=== PATIENT | male | born 1955 | race Hispanic/Latino ===

== ENCOUNTER → 2024-01-20 | Outpatient (CLI) | payer OTHER ==
[~2024-01-20] MED LIST: ALBU8.5H8 IH; ASPI-1005 PO; ATOR40TA69 PO; BUDE10.2 IH; CYCL-309 PO; ESOM20CA31 PO; FLUT16H NASAL; FURO20TA4 PO; GABA-531 PO; ISOS30TA92 PO; LISI20TA24 PO; METO50TA18 PO; NITR0.4T SL; POTA25PA PO; TRAM50TA4 PO; VERA240T95 PO
== END | disposition home or self-care (01) ==
LOC: RAH 10:05
PROVIDERS: ATTEND Internal Medicine Cardiovascular Disease
DX: Z13.6 Encounter for screening for cardiovascular disorders (principal); I71.21 Aneurysm of the ascending aorta, without rupture
CPT/HCPCS: 75571

== ENCOUNTER → 2024-02-14 | Outpatient (CLI) | payer OTHER ==
[2024-02-14] MEDS: REGADENOSON 0.4 MG/5 ML PF SYG IVP ONE (11:25)
== END | disposition home or self-care (01) ==
LOC: SHCH 08:05
PROVIDERS: ATTEND Internal Medicine Cardiovascular Disease
DX: R07.89 Other chest pain (principal); R06.00 Dyspnea, unspecified
CPT/HCPCS: 78452; 96374; 93017; J2785; A9500 ×2

== ENCOUNTER → 2024-11-15 | Outpatient (CLI) | payer OTHER ==
[~2024-11-15] MED LIST changes: +IOHEXOL 350 MG/ML 100ML INFUS..BTL IV ONE
--- NOTE | 2024-11-15 10:35 | HMCIMG ---
CT ANGIO CHEST HISTORY: Aortic ectasia COMPARISON: 05/12/2015 TECHNIQUE: CT angiography of the chest was performed. The study was performed using angiographic technique with maximum intensity projection reconstruction images. Patient was given 100 cc of Omnipaque through intravenous route. FINDINGS: There is ascending thoracic aortic aneurysm measuring 4.3 x 4.9 cm. This is grossly unchanged allowing for technical differences. Fatty changes of the liver are noted. Tiny gallstone is seen in the gallbladder. There is right adrenal hypodense nodule measuring 12 mm suggested of adrenal adenoma. There is left adrenal nodule with decreased attenuation measuring 16 mm also consistent with adrenal adenoma. No CT evidence of filling defect is seen to suggest pulmonary embolus. No CT evidence of aortic dissection is seen. No evidence of parenchymal disease is seen. No CT evidence of pleural effusion or pericardial effusion is seen. The heart is enlarged. Degenerative changes of the spine are noted. IMPRESSION: 1. No CT evidence of acute pulmonary embolus or aortic dissection is seen. There is ascending thoracic aortic aneurysm measuring 4.3 x 4.9 cm grossly unchanged. Bilateral adrenal nodules may be related to adrenal adenoma also unchanged. CT was performed with one or more following dose reduction techniques: automated exposure control, adjustment of the mA and kv according to patient's size, or use of a iterative reconstruction technique.
== END | disposition home or self-care (01) ==
LOC: RAH 08:31
PROVIDERS: ATTEND Internal Medicine Cardiovascular Disease
DX: I51.7 Cardiomegaly (principal); I71.21 Aneurysm of the ascending aorta, without rupture; K76.0 Fatty (change of) liver, not elsewhere classified; E27.8 Other specified disorders of adrenal gland; K80.20 Calculus of gallbladder without cholecystitis without obstruction; M47.814 Spondylosis without myelopathy or radiculopathy, thoracic region
CPT/HCPCS: 71275; Q9967

== ENCOUNTER → 2024-11-30 | Outpatient (CLI) | payer OTHER ==
[~2024-11-30] MED LIST changes: -IOHEXOL 350 MG/ML 100ML INFUS..BTL IV ONE
[2024-11-30 12:16] LABS: ALBUMIN 3.9 g/dL (3.5-5.0); BILIRUBIN,TOTAL 0.5 mg/dL (0.2-1.0); CREATININE 1.1 mg/dL (0.5-1.3); MAGNESIUM 2.1 mg/dL (1.80-2.40); POTASSIUM 4.3 mmol/L (3.5-5.1); T4 (THYROXINE) 5.9 ug/dL (4.7-13.3); THYROID STIMULATING HORMONE 2.19 uIU/mL (0.36-3.74); TOTAL PROTEIN, SERUM 7.9 g/dL (6.0-8.3)
== END | disposition home or self-care (01) ==
LOC: LAB 09:00
PROVIDERS: ATTEND Internal Medicine Cardiovascular Disease
DX: R00.2 Palpitations (principal)
CPT/HCPCS: 36415; 80053; 83735; 83880; 84436; 84443; 84479

== ENCOUNTER → 2025-03-20 | Outpatient (CLI) | payer OTHER ==
[2025-03-16 12:02] VITALS: BP 117/62; PULSE 81; RESP 14; TEMP 98
[2025-03-16 12:29] LABS: IMMATURE GRANULOCYTE ABSOLUTE 0.03 K/uL (0-1); NUCLEATED RED BLOOD CELLS 0.0 % (0.0-0.19); PLATELET COUNT (AUTO) 261 K/uL (130-400); RED BLOOD CELL COUNT(AUTO) 4.10 MIL/uL (4.50-6.20); RED CELL DISTRIBUTION WIDTH 12.7 % (11.0-15.5); WHITE BLOOD COUNT (AUTO) 10.0 K/uL (4.8-10.8)
[2025-03-16 12:41] LABS: CREATININE 2.2 mg/dL (0.5-1.3); GLOMERULAR FILTR. RATE CALC 32.0 mL/min (>90); GLUCOSE,RANDOM 108.0 mg/dL (70-105); SODIUM SERUM 137.0 mmol/L (136-145); UREA NITROGEN, BLOOD 33.0 mg/dL (7-18)
[2025-03-16 12:43] LABS: INR 0.95 (0.85-1.15)
--- NOTE | 2025-03-16 16:00 | NUR ---
RE: MEDICATION INSTRUCTIONS INFORMED JEFFERY MALHOTRA/DR DIGGS THAT PATIENT DID NOT TAPER METOPROLOL INSTRUCTED AND THAT HIS LAST DOSE WAS 03/15/25 AT 1800. NO NEW ORDERS RECEIVED.
--- NOTE | 2025-03-17 09:34 | EKG ---
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
--- NOTE | 2025-03-19 16:33 | NUR ---
RE: LABS REPORTED BMP RESULTS TO DR DIGGS. PER DR DIGGS, CANCEL PROCEDURE AND HAVE PATIENT FOLLOW UP WITH PCP DUE TO KIDNEY FUNCTION. CALLED PATIENT AND EXPLAINED TO HIM THAT PROCEDURE WAS CANCELED BY DR DIGGS DUE TO KIDNEY FUNCTION. INSTRUCTED PATIENT TO FOLLOW UP WITH PCP REGARDING KIDNEY FUNCTION. PATIENT STATES HE DOES NOT HAVE A PCP.
[~2025-03-20] VITALS: Ht 185.4 cm; Wt 131.5 kg
[~2025-03-20] MED LIST changes: -ALBU8.5H8 IH; -ASPI-1005 PO; -CYCL-309 PO; +CYCL1DRO14 OP; +DICL2.5D7 OP; +DRON400T7 PO; -ESOM20CA31 PO; -FLUT16H NASAL; -FURO20TA4 PO; +FURO40TA5 PO; -GABA-531 PO; -LISI20TA24 PO; +LOSA100T59 PO; +METF-444 PO; -NITR0.4T SL; +POTA-193 PO; -POTA25PA PO; -TRAM50TA4 PO; -VERA240T95 PO
== END | disposition home or self-care (01) ==
LOC: EDSTATUS 09:30 → LAB 11:00
PROVIDERS: ATTEND Internal Medicine Cardiovascular Disease
DX: I49.3 Ventricular premature depolarization (principal); I45.10 Unspecified right bundle-branch block; Z88.8 Allergy status to other drugs, medicaments and biological substances; Z79.01 Long term (current) use of anticoagulants; Z53.8 Procedure and treatment not carried out for other reasons
CPT/HCPCS: 36415; 80048; 85025; 85610; 85730; 93005

== ENCOUNTER 2025-06-21 08:41 | Inpatient (IN) | payer OTHER ==
[2025-06-18 08:06] LABS: IMMATURE GRANULOCYTE ABSOLUTE 0.01 K/uL (0-1); NUCLEATED RED BLOOD CELLS 0.0 % (0.0-0.19); PLATELET COUNT (AUTO) 259 K/uL (130-400); RED BLOOD CELL COUNT(AUTO) 4.52 MIL/uL (4.50-6.20); RED CELL DISTRIBUTION WIDTH 12.1 % (11.0-15.5); WHITE BLOOD COUNT (AUTO) 6.7 K/uL (4.8-10.8)
[2025-06-18 08:14] LABS: CREATININE 1.0 mg/dL (0.5-1.3); GLOMERULAR FILTR. RATE CALC 81.0 mL/min (>90); GLUCOSE,RANDOM 121.0 mg/dL (70-105); SODIUM SERUM 137.0 mmol/L (136-145); UREA NITROGEN, BLOOD 12.0 mg/dL (7-18)
[2025-06-18 08:17] LABS: INR <= 0.93 (0.85-1.15)
--- NOTE | 2025-06-18 09:46 | EKG ---
[facility] Test Date: 2025-06-18 Test Time: 07:47:37 Pat Name: LIZA MCBRIDE [facility] Room: Gender: M Rate Examiner: [id number] : 1955 Requested By: PIERRE DIGGS Order Number: [id number] Reading MD: Avni Hannon Measurements Intervals [place] Rate: 75 P: 24 [place]: 190 QRS: -32 QRSD: 148 T: 27 QT: 445 QTc: 499 Interpretive Statements Sinus rhythm Right bundle branch block Compared to ECG 03/16/2025 11:44:54 Ventricular premature complex(es) no longer present Electronically Signed On 06-18-2025 18:16:36 HELPDESK TECHNICIAN by Avni Hannon Please click the below link to view image of tracing.
[2025-06-18 10:23] VITALS: BP 152/84; PULSE 85; RESP 17; TEMP 97.2
[2025-06-21] VITALS (14 sets, daily range): BP systolic 115–171; BP diastolic 72–104; PULSE 69–92; RESP 6–18; TEMP 97.2–98.1; O2SAT 94–96
[~2025-06-21] VITALS: Ht 185.4 cm; Wt 132.9 kg
[~2025-06-21 08:41] MED LIST changes: -ATOR40TA69 PO; -CYCL1DRO14 OP; +CYCL1DRO14 OS; -DICL2.5D7 OP; -FURO40TA5 PO; -METF-444 PO; +METF-446 PO; +METO25TA6 PO; +MULT-1285 PO; -POTA-193 PO; +POTA-202 PO
[2025-06-21] MEDS: 0.9%NACL 1000ML 1,000 ML IV SCH (09:24)
--- NOTE | 2025-06-21 11:44 | NUR ---
Patient remains stable with VS wnl. Awaiting Ablation at this time. Reported off in full to Jared HAMILTON RN.
[2025-06-21] MEDS ORDERED: SODIUM BICARB 50MEQ 50ML VIAL 50 ML ONE (12:21)
[2025-06-21] MEDS ORDERED: LIDOCAINE HCL 400MG/20ML VIAL ONE (12:21)
[2025-06-21] MEDS ORDERED: HEParin-NS 1,000 UNIT/500 ML 1,000 ML IV ONE (12:22)
[2025-06-21] MEDS ORDERED: MIDAZOLAM HCL 1 MG/ML 2ML VIAL ONE ×2 (12:34→14:35)
[2025-06-21] MEDS ORDERED: ISOPROTERENOL HCL 0.2 MG/ML AMP/VIAL/BAG ONE (12:42)
--- NOTE | 2025-06-21 17:05 | NUR ---
report to fela rn for room 232
--- NOTE | 2025-06-21 18:54 | CONS ---
[facility] CARDIAC ELECTROPHYSIOLOGY HISTORY AND PHYSICAL Date Patient Seen: Jun 21, 2025 Time of Visit: 18:46 Reason for Consultation: PVCs and chest pain History of Present Illness: The patient is a 69-year-old male with a past history of hypertension, COPD, diabetes, cervical spine disease, and a ascending aortic aneurysm, who is referred for frequent PVCs. He has a long history of recurrent syncope, nonsustained VT, and multiple PVCs. He had an MRI at that time which was without any significant abnormality. He has had normal LV systolic function back at that time. I had initially seen him in November 2014 when he was experiencing recurrent syncope, nonsustained VT, and PVCs. He had an MRI previously which was found to be normal and he had preserved LV systolic function. In 2014, he underwent cardiac catheterization which showed normal coronary arteries and a dilated aortic root. This is in contrast to a cardiac catheterization back in 2005 which showed an 80% stenosis of the ramus intermediate which was a small vessel and otherwise normal coronaries, raising the suspicion of possible silent infarct. His ejection fraction was 55% at that time. More recently he had a Lexiscan Cardiolite stress test on 02/14/2024 demonstrating inferoapical hypokinesis and fixed inferoseptal defects. There were no reversible defects. The ejection fraction was calculated at 43%. On 12/05/2014 he underwent electrophysiologic study by myself at [facility]. This showed PVCs originating from the septal aspect of the RVOT with earliest activation within 10 mm of the hiss bundle. There was no inducible VT. He also was found to have dual AV josefina physiology with up to 2 echo beats but no inducible AVNRT with isoproterenol up to 8 mcg/min. Ablation of the PVC focus was not done due to this close proximity to the His bundle and high risk of AV block. He did well on medical therapy but then his symptoms recurred. He was in [place], [place] in 2017 and on 01/29/2017 he underwent repeat electrophysiologic study. He was told at the time that the site was indeed very close to the conduction system but he gave the patient the option of taking the risk of complete heart block in order to achieve a cure. The patient decided to move forward and he did have a successful ablation. After approximately 6 months, he had recurrent PVCs and an episode of syncope and was treated with verapamil. This was successful until approximately a year ago when he developed recurrent palpitations metoprolol tartrate 50 mg twice daily was added to his regimen. A mobile property assessment monitor in December of this year demonstrated frequent PVCs with a burden of 22.2%. He had a 41 runs of NSVT, the longest being 3 beats. His most recent echo was in 09/2024 which demonstrated mild LV dysfunction with an EF of 45%, grade 2 diastolic dysfunction, and a mildly to moderately dilated right ventricle. He was then treated with Multaq and the patient did reasonably well, however be he did continue to have symptoms and was scheduled for catheter ablation in February of this year. He was fully cognizant of the potential risk of AV block and was willing to take that risk. He came in today for the procedure. He was having only rare PVCs from two different foci, neither of which was the previous focus. With isoproterenol up to 4 micrograms/minute, the patient had 24 different morphologies of PVCs. Full details in the report. By 12 lead ECG analysis, these occurred in various locations, mostly in the right ventricle but some possibly in the left ventricular septum. The most prominent focus had a 2% burden during the course of the study. A dense voltage map was then done showing severely abnormal voltage with multiple areas of scars in the right ventricle, most prominently in the floor of the ventricle, the apex, in the outflow tract. This is typically what is seen in arrhythmogenic right ventricular cardiomyopathy. In addition, during the procedure, the patient was experiencing neck and jaw pain when mapping produced frequent PVCs and short runs of nonsustained VT. Program stimulation was then done using the full protocol and there was no inducible VT or VF. Past Medical History: As above Family History: Noncontributory Social History: Denies smoking or alcohol abuse Home Meds: See list Review of Systems: Negative on a 13 point review except those mentioned in HPI Physical Examination: General: The patient is in no acute distress HEENT: Grossly within normal limits Neck: No JVD Lungs: Clear Heart: Regular with no murmur Abdomen: Benign Extremities: Without edema Vital Signs (last 8hr) Date Time Temp Pulse Resp B/P (MAP) Pulse Ox O2 Delivery O2 Flow Rate FiO2 06/21/25 18:35 91 18 151/88 96 Room Air 21 06/21/25 18:03 96 Room Air* 0 21 06/21/25 17:35 98.1 91 18 152/94 97 Room Air 21 06/21/25 17:05 84 6 162/79 96 Room Air 21 06/21/25 16:35 85 15 171/100 95 Room Air 21 06/21/25 16:20 81 16 160/98 95 Room Air 21 06/21/25 16:05 83 17 168/100 95 Room Air 21 06/21/25 15:50 21 06/21/25 15:50 97.9 83 18 164/104 95 Room Air 21 Laboratory: [ ] Chemistry Labs: Test 06/21/25 08:46 Range/Units Whole Blood Glucose 141 H 70-110 MG/DL Assessment: 1. 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 He clearly now has severe electrical disease of the right ventricle which was also dilated. 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 He had numerous morphologies and locations for these PVCs and therefore ablation could not be done. 2. Chest pain: The patient experienced neck and jaw pain during the procedure. Although we had a normal cardiac catheterization in 2014, he did have an abnormal nuclear stress test recently. 3. Hypertension the patient has exhibited significant hypertension during this visit so far. Plan: 1. The patient will be admitted for further workup and treatment 2. An echocardiogram will be ordered 3. I discussed the case with Dr. Humphrey and the patient will go undergo cardiac catheterization tomorrow 4. The patient can not be given the diagnosis of ARVC since he does not have any of the standard criteria, however I do believe this is likely and he will need further workup in this regard. He will be sent for a cardiac MRI once he is discharged from the hospital 5. There was no evidence at this patient is at risk for sudden cardiac at this time and his negative inducibility during programmed stimulation has a reasonable negative predictive value. 6. We will treat the PVCs with sotalol. This will require monitoring and measurement of QT intervals. 7. We will also start a beta-malissa to further treat his hypertension and it is clear indication in patients with ARVC. PIERRE DIGGS MD Jun 21, 2025 18:54
[2025-06-21 19:33] LABS: NUCLEATED RED BLOOD CELLS 0.0 % (0.0-0.19); PLATELET COUNT (AUTO) 233.0 K/uL (130-400); RED BLOOD CELL COUNT(AUTO) 4.18 MIL/uL (4.50-6.20); RED CELL DISTRIBUTION WIDTH 12.4 % (11.0-15.5); WHITE BLOOD COUNT (AUTO) 8.4 K/uL (4.8-10.8)
[2025-06-21 19:41] LABS: CREATININE 1.1 mg/dL (0.5-1.3); GLOMERULAR FILTR. RATE CALC 72.0 mL/min (>90); GLUCOSE,RANDOM 189.0 mg/dL (70-105); SODIUM SERUM 140.0 mmol/L (136-145); UREA NITROGEN, BLOOD 11.0 mg/dL (7-18)
[2025-06-21 19:44] LABS: INR 0.95 (0.85-1.15)
[2025-06-22] VITALS (15 sets, daily range): BP systolic 130–169; BP diastolic 76–108; PULSE 54–74; RESP 18–20; TEMP 97.4–98; O2SAT 94–95
--- NOTE | 2025-06-22 04:44 | EKG ---
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
--- NOTE | 2025-06-22 05:39 | EKG ---
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
--- NOTE | 2025-06-22 07:28 | PN ---
PROBLEM LIST: 1. History of hypertension. 2. COPD. 3. Diabetes mellitus. 4. Cervical spine disease. 5. Ascending aortic aneurysm. 6. Frequent complex PVCs and nonsustained ventricular tachycardia. 7. Cardiomyopathy with an EF of 40-45% by nuclear imaging in the past. 8. History of normal coronary arteries with a dilated aortic root by cardiac catheterization in 2004 or 2005 with prior studies showing a questionable 80% stenosis of the ramus intermedius, felt to be a small vessel. The patient had a fixed defect on Cardiolite scan in 02/2024 with anterior apical hypokinesis. The patient has been assessed with Dr. Abdullahi Juarez and hospitalized because of complex ectopy and fairly bothersome and symptomatic palpitations. He was noted to have findings similar to what he had by electrophysiologic studies in 2014. The patient had PVCs originating from the septal aspect of the right ventricular outflow tract with the earliest activation time 10 mm off of the His bundle. There was no inducible V-tach. The patient was also noted to have dual AV josefina physiology at that time. There was no inducible AV josefina re-entrant tachycardia despite isoproterenol. The patient was evaluated in consideration for ablation of his PVCs; however, this was not done due to the close proximity to His bundle and high risk of complete heart block. The patient had also been evaluated in [place] in 01/2017 and had an electrophysiology study and was given the option of proceeding with ablation and permanent pacemaker implant as a possibility; however, that was not performed. The patient has been managed with beta blockers and had done well until approximately a year ago when he developed recurrent palpitations despite metoprolol at 50 mg twice a day, which was added to his regimen. Mobile telemetry in December of this year demonstrated frequent PVCs with a burden of 22.2%. He had 41 runs of nonsustained ventricular tachycardia with intermittent 3-beat runs. An echo done in 09/2024 revealed an EF of 45% with grade 2 diastolic dysfunction and a mildly to moderately dilated right ventricle. He was started on Multaq and had done reasonably well; however, he continued to have worsening symptoms and was scheduled for catheter ablation this year. The patient was assessed yesterday with Dr. Abdullahi Juarez and underwent an evaluation with electrophysiologic mapping. He was noted to have 24 different morphologies of PVCs. EKG had revealed different locations from which the PVCs originate; however, mostly it was in the right ventricle but some were possibly in the left ventricular septum. The patient's dense voltage map was remarkable for severely abnormal voltage with multiple areas of scars in the right ventricle, most prominently in the floor of the ventricle, the apex, and the outflow tract. Dr. Juarez felt that this was often seen in arrhythmogenic right ventricular cardiomyopathy. During the procedure, with isoproterenol infusion, the patient developed neck and jaw pain during the setting of PVCs and short runs of nonsustained VT. There was no inducible VT or V-fib. Dr. Juarez and I had a detailed discussion last evening in regard to the patient's management. Given his cardiomyopathy, his ventricular tachycardia, as well as his symptoms of jaw and neck pain, it was felt to be reasonable to proceed with additional assessment for his ischemic burden. We recommended an evaluation; however, given the fixed defects on recent Lexiscan and the fact that the patient has complex arrhythmia, which would make coronary CT angiography less reliable, we agreed to proceed with cardiac catheterization and coronary arteriography. It is important to note that the patient was sent for a cardiac MRI in the past to assess for the possibility of sarcoidosis or other pathology and that was fairly benign; however, that was approximately 20 years ago. Today, I have had a discussion with the patient in regard to the findings on his evaluation. He is requesting to proceed with whatever measures needed to help him feel better. He has been appraised of the procedure of cardiac catheterization, which he has requested to proceed with. He understands the benefits, goals, and risks, including the potential for CVA, AR, , vascular compromise, and loss of limb. The patient has dilated aortic root and would probably be more suited for a femoral approach. Ventriculography will be performed and that will help us also evaluate his aortic root. All the patient's questions were invited and answered. He has been scheduled for cardiac catheterization today. TID: [id number] RECEIPT: [id number]
[2025-06-22] MEDS: PoTASSium chloRIDE 20MEQ ER 20 MEQ ERTAB PO SCH (08:29)
[2025-06-22] MEDS: ISOSORBIDE MONO 30MG SR TAB PO SCH (08:30)
--- NOTE | 2025-06-22 09:44 | PN ---
This is [id number] male with a history of RVOT PVCs status post catheter ablation in January 2017, history of syncope prior to the catheter ablation in 2017, hypertension, diabetes mellitus, COPD, degenerative disc disease of the cervical and lumbar spine and ascending aortic aneurysm. He was admitted 06/21/2025 after undergoing electrophysiology study. With isoproterenol up to 4 mcg/min, he had 24 different morphologies of PVCs originating in various locations, mostly in the right ventricle but possibly in the left ventricular septum. The most prominent focus had a 2% burden during the course of the study. A dense voltage map was performed showing severely abnormal voltage with multiple areas of scar in the right ventricle, most prominently in the fourth ventricle, the apex and the outflow track which is typically seen in arrhythmogenic right ventricular cardiomyopathy. Programmed stimulation was performed with no inducible VT or VF. Following the procedure, he received 1 dose of sotalol 80 mg with a plan to titrate to 120 mg this morning. EKG performed this morning at 4:33 AM shows sinus rhythm with a right bundle branch block, heart rate 64 bpm. His QT interval is 440 ms with a corrected QT of 434 ms. He is in sinus rhythm with heart rates in the 60s. Most recent blood pressure is 146/99. White blood count 8.4, hemoglobin 13.8, hematocrit 40.2, platelets 233, creatinine 1.1, potassium 2.9 (06/21/2025); magnesium 2.30, TSH 2.33 (06/22/2025). He recalls history of palpitations and chest pain dating back to his childhood. With activity such as running he would have to stop and rest due to chest pain. He states that the symptoms went on until the age of 14 and then resolved. As a young adult, he began to have recurrent symptoms of abrupt onset dizziness and weakness, progressing to syncope. Prior to undergoing the PVC ablation in 2016, he was having recurrent syncopal events which resolved after undergoing catheter ablation. For the last 4 to 5 years, he began having recurrent palpitations, dizziness and weakness. Assessment: 1. Multiple PVC morphologies (24) with severely abnormal voltage and multiple areas of scar in the right ventricle suspicious for arrhythmogenic right ventricular cardiomyopathy. 2. 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 3. History of syncope. 4. Hypertension. Plan: 1. He underwent electrophysiology study as detailed above. There were multiple areas of scar in the right ventricle suspicious for ARVC. He will require cardiac MRI for confirmation of this diagnosis as an outpatient. 2. He is pending left heart catheterization this morning for coronary delineation. 3. He has been started on sotalol 80 mg which will be titrated to 120 mg twice daily this morning. We will repeat EKG 2 to 3 hours after his dose this morning in order to assess his QT interval. 4. Continue metoprolol to tartrate 75 mg twice daily. 5. We will await the findings of his left heart catheterization. Vitals/Labs Vital Signs Date Time Temp Pulse Resp B/P (MAP) Pulse Ox O2 Delivery O2 Flow Rate FiO2 06/22/25 07:00 97.5 67 20 146/99 95 Room Air 06/21/25 20:00 0 21 Laboratory Tests 06/21/25 19:23 MARYA CAST Jun 22, 2025 09:44
--- NOTE | 2025-06-22 10:43 | NUR ---
DCP:HOME Pt currently lives alone in his home. Pt denies any DME, home health, or provider services. Pt states that he is able to complete ADLs independently. PCP is Shasta Myers and uses [facility] for any RX needs. At DC pt will want to go home and family can assist with transportation.
[2025-06-22] MEDS ORDERED: HEParin-NS 1,000 UNIT/500 ML 1,000 ML IV ONE (11:23)
[2025-06-22] MEDS ORDERED: SODIUM BICARB 50MEQ 50ML VIAL 50 ML ONE (11:23)
[2025-06-22] MEDS ORDERED: LIDOCAINE HCL 400MG/20ML VIAL ONE (11:23)
[2025-06-22] MEDS ORDERED: IOHEXOL 350 MG/ML 100ML INFUS..BTL IV ONE ×2 (11:23→11:39)
[2025-06-22] MEDS ORDERED: NITROGLYCERIN 50MG VIAL ONE (11:24)
--- NOTE | 2025-06-22 11:27 | HMCSR ---
APPROVED REPORT EXAM: Two-dimensional and M-mode echocardiogram with Doppler and color Doppler. INDICATION ICD: cardiomyopathy 2D Dimensions RVDd 4.7 cm LVEF(%) 68.4 (>50%) LVED Vol(simp.) 141.0 mL IVSd 0.8 (0.7-1.1cm) FS(%) 39 % LVES Vol(simp.) 81.6 mL LVDd 6.1 (3.8-5.6cm) LA (2D) 4.6 (1.6-4.0cm) LVEF(%, simp.) 42 % PWd 1.0 (0.7-1.1cm) Ao Root(2D) 3.5 (2.0-3.7cm) LA ESV INDEX (BP) 21.31 mL/m2 LVDs 3.7 (2.5-4.0cm) LVOT diam 2.6 (1.8-2.4cm) Deformation Strain Apical 4 -10.2 % Apical 2 -13.5 % Apical 3 -18.7 % Global Strain -14.2 % M-Mode Dimensions EPSS 1.5 cm LA (MM) 4.5 (1.6-4.0cm) Ao Root(MM) 3.4 (2.0-3.7cm) Aortic Valve AoV Vmax 1.0 m/s Ao Peak GR 4.0 mmHg LVOT Vmax 0.9 m/s AoV VTI 0.2 m Ao Mean GR 2.0 mmHg LVOT VTI 0.24 m LAISHA (VMAX) 4.96 cm2 LAISHA (VTI) 5.3 cm2 Mitral Valve MV E Vmax 56.8 cm/s DECEL Time 355 ms MV A Vmax 76.6 cm/s P 1/2 T 100 ms E/A ratio 0.7 MVA (PHT) 2.2 cm2 TDI E/E' Medial 11.5 E/E' Lateral 9.2 Medial E' Peak V 4.93 cm/s Lateral E' Peak V 6.18 cm/s Pulmonary Valve PV Vmax 0.9 m/s PV VTI 0.28 m PV Mean GR 2.4 mmHg PV Peak GR 3.5 mmHg Tricuspid Valve TR Vmax 2.5 m/s RVSP 24.8 mmHg TR Peak GR 26.9 mmHg Left Ventricle The left ventricle is normal size. Moderate lateral wall hypokinesis There is normal left ventricular wall thickness. LVEF is 45-50%. Stage I diastolic dysfunction. Right Ventricle The right ventricle is mildly dilated. The right ventricular systolic function is normal. Atria The left atrium size is normal. The right atrium is mildly dilated. Aortic Valve The aortic valve is normal in structure. No aortic regurgitation is present. There is no aortic valvular stenosis. Mitral Valve The mitral valve is normal in structure. Mitral regurgitation is trace. There is no mitral valve stenosis. Tricuspid Valve The tricuspid valve is normal in structure. There is mild tricuspid valve regurgitation noted. Pulmonic Valve The pulmonary valve is normal in structure. There is no pulmonic valvular regurgitation. Great Vessels The aortic root is normal in size. The IVC is normal in size and collapses >50% with inspiration. Pericardium There is no pericardial effusion. Conclusion LVEF is 45-50%. Moderate lateral wall hypokinesis Stage I diastolic dysfunction. The aortic root is normal in size. There is no pericardial effusion.
[2025-06-22] MEDS ORDERED: MIDAZOLAM HCL 1 MG/ML 2ML VIAL ONE ×2 (11:39→11:52)
[2025-06-22] MEDS ORDERED: IOHEXOL-350 50ML VIAL IV ONE (11:40)
[2025-06-22] MEDS: 0.9%NACL 1000ML 1,000 ML IV SCH (14:13)
[2025-06-22] MEDS: FAMOTIDINE 20MG TAB PO ONE (14:20)
--- NOTE | 2025-06-22 14:33 | EKG ---
[facility] Test Date: 2025-06-22 Test Time: 14:32:18 Pat Name: LIZA MCBRIDE Department: [facility] Room: 232 1 Gender: M Kaiako Kura [place]: JESSIE : 1955 Requested By: MARYA CAST Order Number: [id number] Reading MD: Christianne Valladares Measurements Intervals [place] Rate: 54 P: 16 SC: 190 QRS: -27 QRSD: 142 T: 13 QT: 542 QTc: 513 Interpretive Statements Sinus rhythm Right bundle branch block Compared to ECG 06/22/2025 04:33:01 no change Electronically Signed On 06-22-2025 20:30:43 TECHNICIAN SUPPORT ENGINEER by Christianne Valladares Please click the below link to view image of tracing.
[2025-06-22] MEDS ORDERED: FAMOTIDINE 20MG VIAL IV ONE (20:30)
[2025-06-23 01:10] VITALS: BP 122/69; PULSE 62; RESP 18; TEMP 98.1
[2025-06-23 04:27] VITALS: BP 138/78; PULSE 63; RESP 18; TEMP 98.6
[2025-06-23 07:00] VITALS: BP 160/96; PULSE 62; RESP 18; TEMP 98.1
[2025-06-23 08:00] VITALS: O2SAT 96
--- NOTE | 2025-06-23 08:39 | EKG ---
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1955 Requested By: MARYA CAST Order Number: [id number] Reading MD: Avni Hannon Measurements Intervals [place] Rate: 75 P: 12 [place]: 192 QRS: -26 QRSD: 142 T: -10 QT: 462 QTc: 515 Interpretive Statements Normal sinus rhythm Nonspecific intraventricular block Inferior infarct , age undetermined T wave abnormality, consider anterior ischemia Compared to ECG 06/22/2025 14:32:18 Myocardial infarct finding now present T-wave abnormality now present Possible ischemia now present Right bundle-branch block no longer present Electronically Signed On 06-24-2025 09:28:52 ENVIRONMENTAL PROGRAMS MANAGER by Avni Hannon Please click the below link to view image of tracing.
[2025-06-23 11:00] VITALS: BP 107/70; PULSE 58; RESP 19; TEMP 98.1
--- NOTE | 2025-06-23 12:03 | EKG ---
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1955 Requested By: MARYA CAST Order Number: [id number] Reading MD: Avni Hannon Measurements Intervals [place] Rate: 57 P: 2 [place]: 180 QRS: -15 QRSD: 134 T: 14 QT: 524 QTc: 510 Interpretive Statements Sinus bradycardia Nonspecific intraventricular block Nonspecific T wave abnormality Compared to ECG 06/23/2025 08:37:45 Sinus rhythm no longer present Myocardial infarct finding no longer present Possible ischemia no longer present T-wave abnormality still present Electronically Signed On 06-24-2025 09:29:28 SOURCE WATER PROTECTION SPECIALIST by Avni Hannon Please click the below link to view image of tracing.
--- NOTE | 2025-06-23 13:16 | PN ---
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 He was admitted 06/21/2025 after undergoing electrophysiology study. He had 14 different PVC morphologies with isoproterenol at 4 micrograms/minute. 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 Programmed stimulation was performed with no inducible VT or VF. He also underwent left heart catheterization 06/22/2025 which showed normal epicardial coronary arteries with LVEF 45-50%. Following the EPS, he was loaded with sotalol. He received his 4th dosage of sotalol this morning. EKG 3 hours after receiving sotalol 120 mg showed sinus bradycardia with a right bundle-branch block, heart rate 57 beats per minute. His QT interval is 480 milliseconds with a corrected QT of 448 milliseconds. He is currently in sinus rhythm with heart rates in the 60s. There were no PVCs seen on the available telemetry tracings. His most recent blood pressure is 107/70. He reported esophageal reflux yesterday and was started on famotidine. He offers up no new complaints today. Assessment: 1. 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 2. 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 3. History of syncope. 4. Hypertension. Plan: 1. He underwent electrophysiology study as detailed above. There were multiple areas of scar in the right ventricle suspicious for ARVC. We will schedule him for cardiac MRI for confirmation of this diagnosis as an outpatient. 2. He received his 4th dose of sotalol this morning. His corrected QT interval has remained stable. 3. He can be discharged home from an electrophysiology standpoint today. 4. He will return to the clinic 06/25/2025 for repeat EKG. 5. Discharge meds will include metoprolol tartrate 75 mg twice daily, losartan 100 mg once daily, isosorbide mononitrate 30 mg once daily and sotalol 120 mg twice daily. Vitals/Labs Vital Signs Date Time Temp Pulse Resp B/P (MAP) Pulse Ox O2 Delivery O2 Flow Rate FiO2 06/23/25 11:00 98.1 58 19 107/70 93 Room Air 06/23/25 08:00 0 21 MARYA CAST PAC Jun 23, 2025 13:16
[2025-06-23] MEDS ORDERED: SOTA80TA PO (13:18)
--- NOTE | 2025-06-23 15:10 | NUR ---
DISCHARGE HOME IV,TELEPAK AND ID BANDS REMOVED. DISCHARGE INSTRUCTIONS GIVEN AND EXPLAINED TO PATIENT. BELONGINGS PACKED AND TAKEN BY PATIENT. PATIENT WHEELED DOWN TO PRIVATE CAR.
--- NOTE | 2025-06-23 18:05 | CCATH ---
PROCEDURE NOTE PROCEDURES: * Left heart catheterization * Left ventriculogram * Diagnostic selective right and left coronary angiogram * Conscious sedation for 30 minutes INDICATIONS: * Recurrent ventricular tachycardia * Cardiomyopathy COMPLICATIONS: None. TOTAL CONTRAST: 60 mL. DESCRIPTION OF PROCEDURE: The patient was taken to the cardiac catheterization lab after appropriate operative consent was signed. He was prepped and draped in the usual fashion. After conscious sedation was administered, the right common femoral artery region was infiltrated with 2% Xylocaine without epinephrine. Ultrasound guidance was utilized and the vessel was cannulated. The femoral artery was accessed with a 6-English sheath was advanced in a retrograde fashion with a modified Seldinger technique. At this point, a right Amplatz II diagnostic catheter was advanced over an indwelling wire and engaged in the ostium of the right coronary artery. This was a large vessel that was quite tortuous in its proximal and distal segments. It gave rise to an acute marginal branch, which was large and a branching PDA PLVB system. The right coronary system was free of disease. At this point, a FL5 6-English catheter was selected given the dilated aortic root and engaged in the ostium of the left main. Imaging was obtained in multiple planes. The left main was a moderately large vessel that was free of disease and trifurcated into the LAD, intermediate, and circumflex. The LAD was a moderately enlarged vessel that gave rise to several diagonals and septal perforators. It had a tortuous segment in the distal portion and in the proximal portion. It was free of disease. The intermediate was a small to moderately sized vessel that was free of disease. The circumflex was a large vessel that consisted basically of one single obtuse marginal branch that was large and tortuous and free of disease. At this point, a pigtail catheter was placed in the left ventricular cavity. Left ventricular end-diastolic pressure measurement was obtained. Ventriculography was performed in the GONZALEZ projection identifying mild hypokinesis in a global fashion. There was no MR and no on pullback. The EF was estimated at 45% to 50%. At this point, the procedure was completed, a Perclose device was utilized with good hemostasis. The patient tolerated the procedure well, left the cardiac catheterization lab in stable condition. FINAL IMPRESSION: * Normal epicardial coronary arteries * Borderline left ventricular function * No mitral regurgitation * No aortic stenosis PLAN: Continue medical management and additional assessment for his ventricular tachycardia as per Dr. Abdullahi Juarez. TID: [id number] RECEIPT: [id number]
== END 2025-06-23 15:00 | disposition home or self-care (01) | DRG 274 ==
LOC: DAH 08:41 → OBSVTOIN 08:42 → DAH 08:42 → INTOOBSV 08:42 → UNDOADMOB 08:42 → DAHIP 08:42 → 2AH 17:51 → DAHIP 17:51 → OBSVTOIN 06-22 09:00 → DAHIP 06-22 09:00 → 2AH 06-22 09:00
PROVIDERS: ADMIT Internal Medicine Cardiovascular Disease; ATTEND Internal Medicine Cardiovascular Disease
PROC: 02K83ZZ Map Conduction Mechanism, Percutaneous Approach (ICD-10-PCS; 2025-06-21)
PROC: 4A023FZ Measurement of Cardiac Rhythm, Percutaneous Approach (ICD-10-PCS; 2025-06-21)
PROC: 4A0234Z Measurement of Cardiac Electrical Activity, Percutaneous Approach (ICD-10-PCS; 2025-06-21)
PROC: 4A023N7 Measurement of Cardiac Sampling and Pressure, Left Heart, Percutaneous Approach (ICD-10-PCS; principal; 2025-06-22)
PROC: B2111ZZ Fluoroscopy of Multiple Coronary Arteries using Low Osmolar Contrast (ICD-10-PCS; 2025-06-22)
PROC: B2151ZZ Fluoroscopy of Left Heart using Low Osmolar Contrast (ICD-10-PCS; 2025-06-22)
DX: I49.3 Ventricular premature depolarization (principal); I47.20 Ventricular tachycardia, unspecified; E11.9 Type 2 diabetes mellitus without complications; I71.21 Aneurysm of the ascending aorta, without rupture; J44.9 Chronic obstructive pulmonary disease, unspecified; I42.8 Other cardiomyopathies; I49.8 Other specified cardiac arrhythmias; M51.369 Other intervertebral disc degeneration, lumbar region without mention of lumbar back pain or lower extremity pain; Z79.899 Other long term (current) drug therapy; Z79.01 Long term (current) use of anticoagulants
CPT/HCPCS: 36415; 80048; 82948; 83735; 84443; 85025; 85027; 85610; 85730; 93005; 93306; 93356; 93458; 93613; 93620; 93623; 99156; 99157; A4606; C1730; C1732; C1760; C1894; G0378; J0360; J1644; J2250; J2470; J3010; J3490; Q9967; A4215; A4216; A4221; A4222; A4223; A4649; A4663; Q9965